=== PATIENT | female | born 1945 | race Hispanic/Latino ===

== ENCOUNTER 2021-07-13 20:04 | Inpatient (IN) | payer MEDICARE ==
--- NOTE | 2021-07-13 23:24 | Emergency Department Report ---
ED Shortness of Breath HPI - General Chief Complaint: Dyspnea/Respdistress Stated Complaint: GIANCARLO Time Seen by Provider: 07/13/21 23:19 Source: patient Mode of arrival: Wheelchair Limitations: No Limitations - History of Present Illness Initial Comments: Patient is a 75-year-old female that presents emergency room with complaints of cough and shortness of breath. Patient states short breath better with rest and worse with exertion. Patient states that her symptoms are worsening. Patient dates her symptoms been going on for 3 days. Patient denies chest pain. Patient states she has a dry cough. Patient denies fever and chills. Patient denies abdominal pain. Patient denies nausea vomiting. Patient also complains of lower extremity swelling for 3 days. Patient denies recent travel. Patient denies recent international travel. Patient denies exposure to the novel coronavirus. Patient denies sick contacts. Patient denies fever and chills. . Patient denies diarrhea. Patient denies coming in contact with anybody with symptoms of the novel coronavirus. Patient denies past medical history. Patient brought in by EMS. Patient placed on oxygen because her oxygen level was 86%. Patient is currently on 4 L of oxygen. MD Complaint: shortness of breath, cough -: Sudden, days(s) Severity: severe Consistency: constant Improves With: rest Worsens With: exertion Associated Symptoms: cough Treatments Prior to Arrival: oxygen - Related Data Home Oxygen Therapy: No Allergies Allergy/AdvReac Type Severity Reaction Status Date / Time No Known Allergies Allergy Verified 07/13/21 22:04 ED Review of Systems ROS: Stated complaint: GIANCARLO Other details as noted in HPI Constitutional: denies: chills, fever Eyes: denies: eye pain, eye discharge, vision change ENT: denies: ear pain, throat pain Respiratory: see HPI, cough, shortness of breath, SOB with exertion, SOB at rest. denies: wheezing Cardiovascular: dyspnea on exertion, edema. denies: chest pain, palpitations Endocrine: no symptoms reported Gastrointestinal: denies: abdominal pain, nausea, diarrhea Genitourinary: denies: urgency, dysuria, discharge Musculoskeletal: denies: back pain, joint swelling, arthralgia Skin: denies: rash, lesions Neurological: denies: headache, weakness, paresthesias Psychiatric: denies: anxiety, depression Hematological/Lymphatic: denies: easy bleeding, easy bruising ED Past Medical Hx - Past Medical History Previous Medical History?: Yes Additional medical history: spinal stenosis - Surgical History Past Surgical History?: No - Family History Family history: no significant - Social History Smoking Status: Never Smoker Substance Use Type: None ED Physical Exam - General Limitations: No Limitations General appearance: alert, in distress - Head Head exam: Present: atraumatic, normocephalic - Eye Eye exam: Present: normal appearance - ENT ENT exam: Present: mucous membranes moist - Neck Neck exam: Present: normal inspection - Respiratory Respiratory exam: Present: respiratory distress, rales, rhonchi, decreased breath sounds - Cardiovascular Cardiovascular Exam: Present: regular rate, normal rhythm. Absent: systolic murmur, diastolic murmur, rubs, gallop - GI/Abdominal GI/Abdominal exam: Present: soft, normal bowel sounds - Extremities Exam Extremities exam: Present: normal inspection - Back Exam Back exam: Present: normal inspection - Neurological Exam Neurological exam: Present: alert, oriented X3 - Psychiatric Psychiatric exam: Present: normal affect, normal mood - Skin Skin exam: Present: warm, dry, intact, normal color. Absent: rash ED Course Vital Signs 07/13/21 07/13/21 07/14/21 22:05 23:47 00:55 Temperature 97.8 F Pulse Rate 112 H 102 H Respiratory 22 22 24 Rate Blood Pressure Blood Pressure 145/69 164/72 [Left] O2 Sat by Pulse 97 100 Oximetry 07/14/21 07/14/21 07/14/21 01:30 01:33 01:45 Temperature Pulse Rate 104 H 107 H Respiratory 28 H 28 H 24 Rate Blood Pressure Blood Pressure [Left] O2 Sat by Pulse 100 100 Oximetry 07/14/21 07/14/21 07/14/21 02:01 02:15 02:20 Temperature 98.1 F Pulse Rate 108 H 109 H 112 H Respiratory 26 H 25 H 22 Rate Blood Pressure 147/53 147/53 Blood Pressure [Left] O2 Sat by Pulse 95 Oximetry 07/14/21 07/14/21 07/14/21 02:31 02:35 02:45 Temperature Pulse Rate 107 H 104 H 105 H Respiratory 26 H 24 25 H Rate Blood Pressure 124/68 120/33 120/33 Blood Pressure [Left] O2 Sat by Pulse 95 Oximetry 07/14/21 07/14/21 07/14/21 03:01 03:05 03:15 Temperature Pulse Rate 104 H 108 H 93 H Respiratory 21 24 19 Rate Blood Pressure 115/43 115/43 144/68 Blood Pressure [Left] O2 Sat by Pulse 100 100 Oximetry 07/14/21 07/14/21 07/14/21 03:31 03:35 03:45 Temperature Pulse Rate 87 143 H 86 Respiratory 15 18 15 Rate Blood Pressure 143/57 143/57 126/65 Blood Pressure [Left] O2 Sat by Pulse 100 98 100 Oximetry 07/14/21 07/14/21 03:55 04:01 Temperature 98.2 F Pulse Rate 85 95 H Respiratory 15 15 Rate Blood Pressure 133/56 133/56 Blood Pressure [Left] O2 Sat by Pulse 100 Oximetry - Reevaluation(s) Reevaluation #1: Patient is now complaining of chest pain. Patient given morphine. Patient has pulmonary edema on her chest x-ray patient was given Lasix. Patient also complained of anxiety and the patient was given Ativan. 07/14/21 00:25 Reevaluation #2: Patient will be given heparin drip for NSTEMI. Patient will also be given packed red blood cells. I discussed all results with patient. I discussed plan of care with patient. Patient agrees with plan of care and admission. Patient to be admitted to the hospitalist service. 07/14/21 00:38 - Consultations Consultation #1: Hospitalist consulted for admission. Hospitalist to admit patient. 07/14/21 00:38 ED Medical Decision Making - Lab Data Result diagrams: 07/13/21 23:26 07/13/21 23:26 - EKG Data -: EKG Interpreted by Me EKG shows normal: sinus rhythm, axis, intervals, QRS complexes, ST-T waves Rate: tachycardia - Radiology Data Radiology results: report reviewed, image reviewed interpreted by me: Chest x-ray: No pneumonia, no pneumothorax, no foreign body, no osseous findings, vascular congestion noted. CHEST 1 VIEW 07/13/2021 10:49 PM INDICATION / CLINICAL INFORMATION: Dyspnea. COMPARISON: None available. FINDINGS: SUPPORT DEVICES: None. HEART / MEDIASTINUM: No significant abnormality. LUNGS / PLEURA: Moderate interstitial edema. Small left pleural effusion. No pneumothorax. ADDITIONAL FINDINGS: No significant additional findings. IMPRESSION: 1. Moderate CHF - Medical Decision Making Patient is a 75-year-old female presents emergency room with complaints of shortness of breath. Patient complains of lung congestion. Patient found to have toxic placed on oxygen the entire time in the ER. Patient required the oxygen. Patient found to have rales on her lung exam. Patient had chest x-ray which shows pulmonary edema and CHF changes. Patient had EKG which shows no acute findings. I personally reviewed the EKG and chest x-ray. Patient given Lasix, morphine. Patient also complained of being anxious and patient was given Ativan. Patient had labs done which showed anemia, elevated troponin, normal renal function, elevated BNP. Patient placed on a heparin drip for the elevated troponin for an NSTEMI. Patient typed and screened and given 1 unit of blood in the ER. Patient admitted to the hospital service for further evaluation treatment. Patient placed in the ICU. Critical care time documented due to the multiple reassessments, prolonged time at the bedside, interpretation of diagnostics and labs. - Differential Diagnosis New onset CHF, pneumonia, bronchitis, S OB, hypoxia Critical Care Time: Yes Critical care time in (mins) excluding proc time.: 35 Critical care attestation.: If time is entered above; I have spent that time in minutes in the direct care of this critically ill patient, excluding procedure time. Critical Care Time: 35 minutes ED Disposition Clinical Impression: Shortness of breath, New onset of congestive heart failure, Elevated troponin I level, NSTEMI (non-ST elevated myocardial infarction) CHF exacerbation Qualifiers: Heart failure type: unspecified Qualified Code(s): I50.9 - Heart failure, unspecified Respiratory failure Qualifiers: Chronicity: acute Respiratory failure complication: hypoxia Qualified Code(s): J96.01 - Acute respiratory failure with hypoxia Anemia Qualifiers: Anemia type: unspecified type Qualified Code(s): D64.9 - Anemia, unspecified Pulmonary edema Qualifiers: Chronicity: acute Qualified Code(s): J81.0 - Acute pulmonary edema Disposition: 09 ADMITTED INPATIENT Is pt being admited?: Yes Does the pt Need Aspirin: No Condition: Critical Time of Disposition: 00:45
[2021-07-13 23:47] LABS: Hematocrit 20.7 % (30.3-42.9); Hemoglobin 6.2 gm/dl (10.1-14.3); Mean Corpuscular HGB Conc 30 % (30-34); Platelet Count 310 K/mm3 (140-440); Red Blood Count 3.02 M/mm3 (3.65-5.03)
[2021-07-14 00:05] LABS: Mean Corpuscular Volume 69 fl (79-97); Red Cell Distribution Width 22.9 % (13.2-15.2)
[2021-07-14 00:11] LABS: Alanine Aminotransferase 20 units/L (7-56); Albumin 3.9 g/dL (3.9-5); Blood Urea Nitrogen 19 mg/dL (7-17); Calcium 8.9 mg/dL (8.4-10.2); Creatine Kinase MB 9.5 ng/mL (0.0-4.0); Hemolysis Index 0
[2021-07-14] MEDS ORDERED: ONDANSETRON 4 MG/2 ML INJ IV ONE (00:20)
[2021-07-14] MEDS ORDERED: MORPHINE 2 MG/1 ML INJ IV ONE (00:20)
[2021-07-14] MEDS ORDERED: LORazepam 2 MG/ML VIAL IV ONE ×2 (00:20→02:51)
[2021-07-14] MEDS ORDERED: ONDANSETRON 4 MG/2 ML INJ ONE (00:22)
[2021-07-14] MEDS ORDERED: MORPHINE 2 MG/1 ML INJ ONE (00:22)
--- NOTE | 2021-07-14 00:22 | XRay Report ---
CHEST 1 VIEW 07/13/2021 10:49 PM INDICATION / CLINICAL INFORMATION: Dyspnea. COMPARISON: None available. FINDINGS: SUPPORT DEVICES: None. HEART / MEDIASTINUM: No significant abnormality. LUNGS / PLEURA: Moderate interstitial edema. Small left pleural effusion. No pneumothorax. ADDITIONAL FINDINGS: No significant additional findings. IMPRESSION: 1. Moderate CHF Signer Name: Sander Clay MD Signed: 07/14/2021 12:18 AM Workstation Name: [id number]
[2021-07-14] MEDS ORDERED: FUROSEMIDE 100 MG/10 ML INJ IV ONE (00:25)
[2021-07-14 00:27] LABS: Band Neutrophils # (Manual) 0.1 K/mm3; Total Cells Counted 100
[2021-07-14 00:28] LABS: Hypochromasia 3+; Ovalocytes Few; Target Cells Few; Tear Drop Cells Few
[2021-07-14 00:30] LABS: BUN/Creatinine Ratio 27
[2021-07-14 00:35] LABS: Platelet Estimate Consistent w Auto
[2021-07-14] MEDS ORDERED: HEPARIN 10,000 UNITS/10 ML VIAL IV ONE (00:36)
[2021-07-14 00:37] LABS: Mean Platelet Volume 7.5 fl (6-12)
[2021-07-14] MEDS ORDERED: SODIUM CHLORIDE 0.9% 500 ML 500 ML IV ONE (00:37)
[2021-07-14 00:38] LABS: Basophils % (Auto) 0.1 % (0.0-1.8); Eosinophils % (Auto) 0.1 % (0.0-4.3); Lymphocytes # (Auto) 0.5 K/mm3 (1.2-5.4); Lymphocytes % (Auto) 3.9 % (13.4-35.0); Monocytes # (Auto) 0.6 K/mm3 (0.0-0.8); Monocytes % (Auto) 4.8 % (0.0-7.3)
[2021-07-14] MEDS ORDERED: HEPARIN/ 0.45% NACL DRIP 25,000 UNIT/500 ML BAG IV SCH (01:00)
[2021-07-14] MEDS ORDERED: ONDANSETRON 4 MG/2 ML INJ IV PRN (01:22)
[2021-07-14] MEDS ORDERED: MORPHINE 4 MG/1 ML INJ IV PRN (01:22)
[2021-07-14] MEDS ORDERED: MAGNESIUM HYDROXIDE (MOM) ORAL LIQD UDC PO PRN (01:22)
--- NOTE | 2021-07-14 01:34 | History and Physical Report ---
History of Present Illness Date of examination: 07/14/21 Date of admission: 07/14/2021 Chief complaint: Shortness of breath Lower extremity swelling History of present illness: 75-year-old female with no significant past medical history except spinal stenosis presents to the emergency room today complaining of shortness of breath, cough and progressive swelling of her lower extremities over the past few days. Shortness of breath is said to be worse on exertion. She denies any chest pain but she has had some mild cough which is nonproductive. She denies any fever or chills, no nausea vomiting, no headache or dizziness. Patient denies any sick contacts and no recent travel. Denies any contact with anyone with COVID-19. She admits that she has not been fully vaccinated against COVID-19. Upon arrival in the emergency room oxygen saturation was about 86% on room air patient was placed on oxygen by nasal cannula with improvement in her oxygen saturation. Work-up in the emergency room today, chest x-ray reveals moderate CHF. Labs reveals elevated troponin of 0.054, BNP 4125. Patient has a mild leukocytosis of 12 and a hemoglobin of 6.2. Past History Past Medical History: other (Spinal stenosis) Past Surgical History: No surgical history Social history: no significant social history Family history: no significant family history Medications and Allergies Allergies Allergy/AdvReac Type Severity Reaction Status Date / Time No Known Allergies Allergy Verified 07/13/21 22:04 Active Meds: Active Medications Heparin Sodium/Sodium Chloride (Heparin/ 0.45% Nacl-25,000 Unit/500 Ml) 25,000 unit in 500 mls @ 20 mls/hr IV TITRATE H[facility]ILTON; Protocol Review of Systems Constitutional: no fever, no chills Ears, nose, mouth and throat: no nasal congestion, no sore throat Cardiovascular: edema (Lower extremity), no chest pain, no palpitations Respiratory: shortness of breath, no cough, no wheezing Gastrointestinal: no abdominal pain, no nausea, no vomiting, no diarrhea Genitourinary Female: no flank pain, no dysuria, no hematuria Musculoskeletal: no neck pain, no low back pain Integumentary: no rash, no pruritis Psychiatric: no anxiety, no depression Endocrine: no polyphagia, no polydipsia, no polyuria, no nocturia Exam - Constitutional Vitals: Temp Pulse Resp BP Pulse Ox 97.8 F 102 H 22 164/72 100 07/13/21 22:05 07/13/21 23:47 07/13/21 23:47 07/13/21 23:47 07/13/21 23:47 General appearance: Present: no acute distress, mild distress, well-nourished - EENT Eyes: Present: PERRL, EOM intact. Absent: scleral icterus ENT: hearing intact, clear oral mucosa, dentition normal - Neck Neck: Present: supple, normal ROM - Respiratory Respiratory effort: labored Respiratory: bilateral: rales - Cardiovascular Rhythm: regular Heart Sounds: Present: S1 & S2. Absent: gallop, systolic murmur, diastolic murmur, rub, click - Extremities Extremities: no ischemia, pulses intact, pulses symmetrical, normal temperature, normal color, Full ROM Extremity abnormal: edema (2+ bilateral lower extremity pitting edema) Peripheral Pulses: within normal limits - Abdominal General gastrointestinal: Present: soft, non-tender, non-distended, normal bowel sounds. Absent: mass - Integumentary Integumentary: Present: clear, warm, dry - Musculoskeletal Musculoskeletal: strength equal bilaterally - Psychiatric Psychiatric: appropriate mood/affect, intact judgment & insight, memory intact, cooperative - Neurologic Neurologic: CNII-XII intact, no focal deficits, moves all extremities HEART Score - HEART Score Troponin: Troponin T 0.054 ng/mL (0.00-0.029) H 07/13/21 23:26 Results - Labs CBC & Chem 7: 07/13/21 23:26 07/13/21 23:26 Labs: Abnormal lab results 07/13/21 07/13/21 07/14/21 Range/Units 23:26 23:26 00:00 WBC 12.2 H (4.5-11.0) K/mm3 RBC 3.02 L (3.65-5.03) M/mm3 Hgb 6.2 L (10.1-14.3) gm/dl Hct 20.7 L (30.3-42.9) % MCV 69 L (79-97) fl MCH 20 L (28-32) pg RDW 22.9 H (13.2-15.2) % Lymph % (Auto) 3.9 L (13.4-35.0) % Lymph # (Auto) 0.5 L (1.2-5.4) K/mm3 Seg Neutrophils % 91.1 H (40.0-70.0) % Seg Neuts % (Manual) 89.0 H (40.0-70.0) % Lymphocytes % (Manual) 5.0 L (13.4-35.0) % Seg Neutrophils # 11.1 H (1.8-7.7) K/mm3 Seg Neutrophils # Man 10.9 H (1.8-7.7) K/mm3 Lymphocytes # (Manual) 0.6 L (1.2-5.4) K/mm3 Sodium 135 L (137-145) mmol/L Chloride 96.9 L (98-107) mmol/L BUN 19 H (7-17) mg/dL Glucose 151 H (65-100) mg/dL Total Creatine Kinase 158 H (30-135) units/L CK-MB (CK-2) 9.5 H (0.0-4.0) ng/mL CK-MB (CK-2) Rel Index 6.0 H (0-4) Troponin T 0.054 H (0.00-0.029) ng/mL NT-Pro-B Natriuret Pep 4125 H (0-900) pg/mL Crossmatch 07/14/21 Range/Units 00:40 WBC (4.5-11.0) K/mm3 RBC (3.65-5.03) M/mm3 Hgb (10.1-14.3) gm/dl Hct (30.3-42.9) % MCV (79-97) fl MCH (28-32) pg RDW (13.2-15.2) % Lymph % (Auto) (13.4-35.0) % Lymph # (Auto) (1.2-5.4) K/mm3 Seg Neutrophils % (40.0-70.0) % Seg Neuts % (Manual) (40.0-70.0) % Lymphocytes % (Manual) (13.4-35.0) % Seg Neutrophils # (1.8-7.7) K/mm3 Seg Neutrophils # Man (1.8-7.7) K/mm3 Lymphocytes # (Manual) (1.2-5.4) K/mm3 Sodium (137-145) mmol/L Chloride (98-107) mmol/L BUN (7-17) mg/dL Glucose (65-100) mg/dL Total Creatine Kinase (30-135) units/L CK-MB (CK-2) (0.0-4.0) ng/mL CK-MB (CK-2) Rel Index (0-4) Troponin T (0.00-0.029) ng/mL NT-Pro-B Natriuret Pep (0-900) pg/mL Crossmatch See Detail Assessment and Plan - Patient Problems (1) CHF exacerbation Current Visit: No Status: Acute Qualifiers: Heart failure type: unspecified Qualified Code(s): I50.9 - Heart failure, unspecified Plan to address problem: Patient placed on diuretics. Will monitor inputs and outputs and also monitor daily weight. Patient will be scheduled for echocardiogram. Consult placed to cardiology for evaluation. (2) NSTEMI (non-ST elevated myocardial infarction) Current Visit: No Status: Acute Plan to address problem: Possibly secondary to demand ischemia. Patient has denied any chest pain. We will monitor EKG and troponin levels. Will await further recommendations from cardiology. (3) Anemia Current Visit: No Status: Acute Qualifiers: Anemia type: unspecified type Qualified Code(s): D64.9 - Anemia, unspecifi ed Plan to address problem: Patient will be transfused with packed red blood cells. We will monitor CBC. (4) DVT prophylaxis Current Visit: No Status: Acute Plan to address problem: Patient currently on anticoagulation with heparin (5) Full code status Current Visit: No Status: Acute Plan to address problem: Patient is full code.
[2021-07-14] MEDS ORDERED: FUROSEMIDE 20 MG/2 ML INJ IV ONE (05:05)
[2021-07-14] MEDS: FUROSEMIDE 40 MG/4 ML INJ IV SCH ×2 (05:07→19:50)
[2021-07-14] MEDS: MORPHINE 2 MG/1 ML INJ IV PRN ×2 (05:36→20:57)
[2021-07-14] MEDS ORDERED: HEPARIN 5,000 UNIT/1 ML VIAL SUB-Q SCH (06:00)
[2021-07-14] MEDS ORDERED: SODIUM CHLORIDE 0.9% 500 ML 500 ML IV SCH (08:00)
--- NOTE | 2021-07-14 12:19 | Consultation ---
History of Present Illness Consult date: 07/14/21 Consult reason: congestive heart failure History of present illness: The patient is a 75-year-old woman who presents to the hospital with several days of shortness of breath. On presentation, ECG was sinus rhythm with no acute changes. Chest x-ray showed bilateral interstitial infiltrates, suggestive of acute pulmonary edema. She looks and feels more comfortable following initial cardiac management. Patient is a poor historian, unable to articulate any details of her prior cardiac history and cardiac work-up. Echocardiogram on this presentation shows a mild to moderate left ventricular dysfunction with ejection fraction 40 to 45%. There are regional wall motion abnormalities with hypokinesis of the basal inferolateral wall and apex, suggestive of possible prior infarct, although the regional wall motion pattern cannot exclude a nonischemic cardiomyopathy such as Takotsubo syndrome. Other findings on this presentation include severe anemia with a hematocrit of 20. Troponin level was measured and was borderline at 0.05. Past History Past Medical History: other (Spinal stenosis) Past Surgical History: No surgical history Social history: no significant social history Family history: no significant family history Medications and Allergies Allergies Allergy/AdvReac Type Severity Reaction Status Date / Time No Known Allergies Allergy Verified 07/13/21 22:04 Active Meds: Active Medications Acetaminophen (Acetaminophen 325 Mg Tab) 650 mg PO Q4H PRN PRN Reason: Pain MILD(1-3)/Fever >100.5/GILMORE Furosemide (Furosemide 40 Mg/4 Ml Inj) 40 mg IV BID@0600,1800 H[facility]ILTON Last Admin: 07/14/21 05:07 Dose: 40 mg Documented by: Heparin Sodium/Sodium Chloride (Heparin/ 0.45% Nacl-25,000 Unit/500 Ml) 25,000 unit in 500 mls @ 20 mls/hr IV TITRATE HAMILTON; Protocol Last Admin: 07/14/21 01:47 Dose: 1,000 units/hr, 20 mls/hr Documented by: Magnesium Hydroxide (Magnesium Hydroxide (Mom) Oral Liqd Udc) 30 ml PO Q4H PRN PRN Reason: Constipation Morphine Sulfate (Morphine 2 Mg/1 Ml Inj) 2 mg IV Q4H PRN PRN Reason: Pain, Moderate (4-6) Last Admin: 07/14/21 05:36 Dose: 2 mg Documented by: Morphine Sulfate (Morphine 4 Mg/1 Ml Inj) 4 mg IV Q4H PRN PRN Reason: Pain , Severe (7-10) Ondansetron HCl (Ondansetron 4 Mg/2 Ml Inj) 4 mg IV Q8H PRN PRN Reason: Nausea And Vomiting Sodium Chloride (Sodium Chloride 0.9% 10 Ml Flush Syringe) 10 ml IV BID H[facility]ILTON Sodium Chloride (Sodium Chloride 0.9% 10 Ml Flush Syringe) 10 ml IV PRN PRN PRN Reason: LINE FLUSH Review of Systems Cardiovascular: shortness of breath, no chest pain, no orthopnea, no palpitations, no rapid/irregular heart beat, no edema, no syncope, no lightheadedness Physical Examination Vital Signs Temp Pulse Resp BP Pulse Ox 97.8 F 112 H 22 145/69 97 07/13/21 22:05 07/13/21 22:05 07/13/21 22:05 07/13/21 22:05 07/13/21 22:05 General appearance: no acute distress HEENT: Positive: PERRL Neck: Positive: neck supple Cardiac: Positive: Reg Rate and Rhythm Lungs: Positive: Decreased Breath Sounds Neuro: Positive: Grossly Intact Abdomen: Positive: Soft Female genitourinary: deferred Skin: Positive: Clear Extremities: Absent: edema Results 07/13/21 23:26 07/13/21 23:26 Cardiac Enzymes 07/13/21 Range/Units 23:26 AST 24 (5-40) units/L CK-MB (CK-2) 9.5 H (0.0-4.0) ng/mL Coagulation 07/14/21 Range/Units 00:40 PT 14.3 (12.2-14.9) Sec. INR 1.00 (0.87-1.13) APTT 25.0 (24.2-36.6) Sec. CBC 07/13/21 Range/Units 23:26 WBC 12.2 H (4.5-11.0) K/mm3 RBC 3.02 L (3.65-5.03) M/mm3 Hgb 6.2 L (10.1-14.3) gm/dl Hct 20.7 L (30.3-42.9) % Plt Count 310 (140-440) K/mm3 Lymph # (Auto) 0.5 L (1.2-5.4) K/mm3 Tripp # (Auto) 0.6 (0.0-0.8) K/mm3 Eos # (Auto) 0.0 (0.0-0.4) K/mm3 Baso # (Auto) 0.0 (0.0-0.1) K/mm3 Comprehensive Metabolic Panel 07/13/21 Range/Units 23:26 Sodium 135 L (137-145) mmol/L Potassium 3.9 (3.6-5.0) mmol/L Chloride 96.9 L (98-107) mmol/L Carbon Dioxide 22 (22-30) mmol/L BUN 19 H (7-17) mg/dL Creatinine 0.7 (0.6-1.2) mg/dL Glucose 151 H (65-100) mg/dL Calcium 8.9 (8.4-10.2) mg/dL AST 24 (5-40) units/L ALT 20 (7-56) units/L Alkaline Phosphatase 117 (35-129) units/L Total Protein 6.9 (6.3-8.2) g/dL Albumin 3.9 (3.9-5) g/dL EKG interpretations - Telemetry EKG Rhythm: Sinus Rhythm Assessment and Plan - Patient Problems (1) Shortness of breath Current Visit: Yes Status: Acute Plan to address problem: Patient presents with shortness of breath, evidence of interstitial edema on chest x-ray. Echocardiogram shows a mild to moderate severity cardiomyopathy with regional motion abnormalities that may suggest underlying coronary artery disease. Continue diuretic management, we will add guideline directed medical therapy, and attempt to obtain her prior medical records for any previous cardiac work-u p. Ultimately, she may need a ischemic evaluation depending on clinical course. Patient has severe anemia, which needs to be worked up and corrected to optimize cardiac status.
[2021-07-14] MEDS: CLOPIDOGREL 75 MG TAB PO SCH (14:08)
[2021-07-14] MEDS: POTASSIUM CHLORIDE ER 20 MEQ TAB PO SCH (14:08)
[2021-07-14] MEDS: LISINOPRIL 5 MG TAB PO SCH (14:09)
[2021-07-14] MEDS: METOPROLOL TARTRATE 25 MG TAB PO SCH ×2 (14:09→22:00)
[2021-07-14 14:43] LABS: Chol/HDL Ratio 2.79 %
[2021-07-15 04:57] LABS: Bacteria,Urine 2+ /HPF (Negative); Bilirubin,Urine NEG (Negative); Blood,Urine NEG (Negative); Color,Urine Yellow (Yellow); Mucus,Urine FEW /HPF; Protein,Urine <15 mg/dL mg/dL (Negative); Urobilinogen,Urine < 2.0 mg/dL (<2.0)
[2021-07-15] MEDS: FUROSEMIDE 40 MG/4 ML INJ IV SCH ×2 (06:06→19:41)
[2021-07-15] MEDS: METOPROLOL TARTRATE 25 MG TAB PO SCH ×3 (06:08→22:54)
[2021-07-15] MEDS: NITROGLYCERIN 0.4 MG PATCH 24HR TD SCH (06:14)
[2021-07-15 08:04] LABS: Hematocrit 21.4 % (30.3-42.9); Hemoglobin 6.5 gm/dl (10.1-14.3); Mean Corpuscular HGB Conc 31 % (30-34); Mean Corpuscular Volume 72 fl (79-97); Platelet Count 235 K/mm3 (140-440); Red Blood Count 2.98 M/mm3 (3.65-5.03)
[2021-07-15 08:33] LABS: BUN/Creatinine Ratio 33; Blood Urea Nitrogen 26 mg/dL (7-17); Calcium 8.6 mg/dL (8.4-10.2); Hemolysis Index 0
[2021-07-15 08:43] LABS: Red Cell Distribution Width 27.2 % (13.2-15.2)
[2021-07-15] MEDS ORDERED: SODIUM CHLORIDE 0.9% 500 ML 500 ML IV NR (09:23)
--- NOTE | 2021-07-15 09:26 | Event Note ---
Date: 07/14/21 Patient seen and examined Patient currently on 5 L nasal cannula O2 Patient appears anxious with bilateral diffuse crackles and rhonchi The patient is a 75-year-old woman who presents to the hospital with several days of shortness of breath. On presentation, ECG was sinus rhythm with no acute changes. Chest x-ray showed bilateral interstitial infiltrates, suggestive of acute pulmonary edema. Continue IV Lasix, cardiology consulted Waiting on pending 2D echocardiogram Patient is unvaccinated for Covid, will also rule out for Covid pneumonia Continue current management and plan -It took me about 28 minutes to reevaluate and reasses this patient, discussed with RN/CM, review medical documents, lab results, imaging, medication list and placing order.
[2021-07-15] MEDS: CLOPIDOGREL 75 MG TAB PO SCH (09:51)
[2021-07-15] MEDS: LISINOPRIL 5 MG TAB PO SCH (09:51)
[2021-07-15] MEDS: POTASSIUM CHLORIDE ER 20 MEQ TAB PO SCH (09:51)
--- NOTE | 2021-07-15 13:10 | Progress Note ---
Assessment and Plan - Patient Problems (1) Shortness of breath Current Visit: Yes Status: Acute Plan to address problem: Patient presents with shortness of breath, evidence of interstitial edema on chest x-ray. Echocardiogram shows a mild to moderate severity cardiomyopathy with regional motion abnormalities that may suggest underlying coronary artery disease. In addition, she has has severe anemia, with a hematocrit that is still 21. Will defer work-up or management to internal medicine and hematology. Eventually, after anemia is corrected we will consider a predischarge noninvasive ischemia evaluation with Lexiscan thallium. Subjective Date of service: 07/15/21 Interval history: Patient looks and feels better, no chest pain, no shortness of breath. Objective Vital Signs Temp Pulse Resp BP Pulse Ox 07/15/21 08:26 90 07/15/21 06:14 92 H 128/52 07/15/21 06:08 92 H 128/52 07/15/21 05:32 98.7 F 92 H 18 128/52 97 07/15/21 05:00 96 07/14/21 23:00 96 07/14/21 22:00 87 132/58 07/14/21 21:33 98.9 F 94 H 18 107/53 98 07/14/21 16:32 98.9 F 90 17 118/42 98 07/14/21 16:30 96 07/14/21 16:01 98.9 F 87 18 132/58 100 07/14/21 14:09 95 H - Physical Examination General: No Apparent Distress HEENT: Positive: PERRL Neck: Positive: neck supple Cardiac: Positive: Reg Rate and Rhythm Lungs: Positive: clear to auscultation Neuro: Positive: Grossly Intact Abdomen: Positive: Soft Skin: Positive: Clear Extremities: Absent: edema - Labs and Meds Lipids 07/14/21 Range/Units 12:53 Triglycerides 93 (2-149) mg/dL Cholesterol 120 (50-199) mg/dL HDL Cholesterol 43 (40-59) mg/dL Cholesterol/HDL Ratio 2.79 % CBC 07/15/21 Range/Units 07:15 WBC 8.0 (4.5-11.0) K/mm3 RBC 2.98 L (3.65-5.03) M/mm3 Hgb 6.5 L (10.1-14.3) gm/dl Hct 21.4 L (30.3-42.9) % Plt Count 235 (140-440) K/mm3 Comprehensive Metabolic Panel 07/15/21 Range/Units 07:15 Sodium 143 D (137-145) mmol/L Potassium 3.4 L (3.6-5.0) mmol/L Chloride 103.4 (98-107) mmol/L Carbon Dioxide 25 (22-30) mmol/L BUN 26 H (7-17) mg/dL Creatinine 0.8 (0.6-1.2) mg/dL Glucose 99 (65-100) mg/dL Calcium 8.6 (8.4-10.2) mg/dL
[2021-07-15] MEDS: MORPHINE 2 MG/1 ML INJ IV PRN ×2 (15:25→22:55)
[2021-07-15 17:52] LABS: Basophils % (Auto) 0.3 % (0.0-1.8); Eosinophils # (Auto) 0.2 K/mm3 (0.0-0.4); Eosinophils % (Auto) 1.9 % (0.0-4.3); Lymphocytes # (Auto) 1.1 K/mm3 (1.2-5.4); Lymphocytes % (Auto) 13.3 % (13.4-35.0); Monocytes # (Auto) 0.6 K/mm3 (0.0-0.8); Monocytes % (Auto) 7.6 % (0.0-7.3)
[2021-07-16] MEDS ORDERED: SODIUM CHLORIDE 0.9% 500 ML IVPB IV ONE (01:38)
[2021-07-16] MEDS: METOPROLOL TARTRATE 25 MG TAB PO SCH ×3 (06:55→22:39)
[2021-07-16] MEDS: FUROSEMIDE 40 MG/4 ML INJ IV SCH ×2 (06:55→17:22)
[2021-07-16] MEDS: NITROGLYCERIN 0.4 MG PATCH 24HR TD SCH (07:00)
[2021-07-16] MEDS ORDERED: diphenhydrAMINE 50 MG/ML VIAL IV ONE (07:43)
--- NOTE | 2021-07-16 08:19 | Progress Note ---
Assessment and Plan --Acute on chronic systolic CHF exacerbation Patient placed on diuretics. Will monitor inputs and outputs and also monitor daily weight. 2D echo showed EF 40 to 45% Consult placed to cardiology for evaluation. --Acute hypoxic respiratory failure, likely due to CHF exacerbation We will also rule out for COVID-19, continue IV Lasix for now --Covid PUI, patient is unvaccinated for Covid, ordered for Covid PCR -- NSTEMI (non-ST elevated myocardial infarction) type II Possibly secondary to demand ischemia. Patient has denied any chest pain. We will monitor EKG and troponin levels. Will await further recommendations from cardiology. -- Anemia likely acute on chronic Patient will be transfused with packed red blood cells. We will monitor CBC. Ordered stool for occult blood -- DVT prophylaxis, SCD for severe anemia --Full CODE STATUS Daily clinical course: 07/14/21: Patient currently on 5 L nasal cannula O2. Patient appears anxious with bilateral diffuse crackles and rhonchi The patient is a 75-year-old woman who presents to the hospital with several days of shortness of breath. On presentation, ECG was sinus rhythm with no acute changes. Chest x-ray showed bilateral interstitial infiltrates, suggestive of acute pulmonary edema. Continue IV Lasix, cardiology consulted Waiting on pending 2D echocardiogram status post 1 unit of packed RBC transfusion. Patient is unvaccinated for Covid, will also rule out for Covid pneumonia Continue current management and plan 07/15/21: Patient hemoglobin still remains low, transfuse another unit of packed RBC, order stool for occult blood, hold heparin. pending Covid test. 2D echo showed EF 40 to 45%. Wean off O2 as tolerated, remains on 4 to 5 L nasal cannula O2. Subjective Date of service: 07/15/21 Interval history: Patient seen and examined. Medical records and medication list reviewed. No acute event overnight noted by the RN. Patient complains of difficulty breathing even on resting and cough. Patient is tolerating diet. Denies any active bleeding Discussed plan of care at bedside with patient. Objective - Exam Narrative Exam: Limited physical exam due to COVID-19 pandemic to minimize transmission of the disease and to preserve PPE. Vital reviewed and stable. GENERAL: well-developed obese elderly man white female lying on bed appeared to be in no discomfort. HEENT: Normocephalic. Atraumatic. NECK: Supple. CHEST/LUNGS: breathing with supplemental O2 HEART/CARDIOVASCULAR: Heart rate stable on telemetry ABDOMEN: Visibly not distended SKIN: There is no rash NEURO: No focal motor deficit. Follows command. MUSCULOSKELETAL: No joint effusion EXTRIMITY: No swelling, no cyanosis or clubbing. PSYCH: Cooperative. - Constitutional Vitals: Vital Signs - 12hr 07/15/21 07/15/21 07/16/21 21:55 23:11 03:15 Temperature 99.2 F 98.6 F Pulse Rate 94 H 82 Respiratory 16 20 Rate Blood Pressure 113/33 100/60 O2 Sat by Pulse 97 95 99 Oximetry 07/16/21 07/16/21 07/16/21 03:30 03:47 04:00 Temperature 98.4 F 98.4 F 98.6 F Pulse Rate 83 83 82 Respiratory 18 20 18 Rate Blood Pressure 126/56 126/51 126/56 O2 Sat by Pulse 98 98 98 Oximetry 07/16/21 07/16/21 07/16/21 04:30 05:00 05:30 Temperature 98.4 F 98.2 F 97.8 F Pulse Rate 82 84 83 Respiratory 18 18 18 Rate Blood Pressure 120/56 122/58 130/60 O2 Sat by Pulse 98 98 98 Oximetry - Labs CBC & Chem 7: 07/16/21 10:50 07/15/21 07:15 Labs: Abnormal lab results 07/14/21 07/15/21 07/15/21 Range/Units 00:40 07:15 07:15 RBC 2.98 L (3.65-5.03) M/mm3 Hgb 6.5 L (10.1-14.3) gm/dl Hct 21.4 L (30.3-42.9) % MCV 72 L (79-97) fl MCH 22 L (28-32) pg RDW 27.2 H (13.2-15.2) % Lymph % (Auto) 13.3 L (13.4-35.0) % [place] % (Auto) 7.6 H (0.0-7.3) % Lymph # (Auto) 1.1 L (1.2-5.4) K/mm3 Seg Neutrophils % 76.9 H (40.0-70.0) % Potassium 3.4 L (3.6-5.0) mmol/L BUN 26 H (7-17) mg/dL Crossmatch See Detail HEART Score - HEART Score Troponin: Troponin T 0.087 ng/mL (0.00-0.029) H D 07/14/21 12:53
[2021-07-16] MEDS: POTASSIUM CHLORIDE ER 20 MEQ TAB PO SCH (10:20)
[2021-07-16] MEDS: CLOPIDOGREL 75 MG TAB PO SCH (10:20)
[2021-07-16] MEDS: LISINOPRIL 5 MG TAB PO SCH (10:33)
[2021-07-16 11:17] LABS: Hematocrit 25.6 % (30.3-42.9); Hemoglobin 8.3 gm/dl (10.1-14.3)
[2021-07-16] MEDS: MORPHINE 2 MG/1 ML INJ IV PRN (17:22)
--- NOTE | 2021-07-16 17:55 | Progress Note ---
Assessment and Plan --Acute on chronic systolic CHF exacerbation Patient placed on diuretics. Will monitor inputs and outputs and also monitor daily weight. 2D echo showed EF 40 to 45% Consult placed to cardiology for evaluation. --Acute hypoxic respiratory failure, likely due to CHF exacerbation We will also rule out for COVID-19, continue IV Lasix for now --Covid PUI, patient is unvaccinated for Covid, ordered for Covid PCR -- NSTEMI (non-ST elevated myocardial infarction) type II Possibly secondary to demand ischemia. Patient has denied any chest pain. We will monitor EKG and troponin levels. Will await further recommendations from cardiology. -- Anemia likely acute on chronic Patient will be transfused with packed red blood cells. We will monitor CBC. Ordered stool for occult blood -- DVT prophylaxis, SCD for severe anemia --Full CODE STATUS Daily clinical course: 07/14/21: Patient currently on 5 L nasal cannula O2. Patient appears anxious with bilateral diffuse crackles and rhonchi The patient is a 75-year-old woman who presents to the hospital with several days of shortness of breath. On presentation, ECG was sinus rhythm with no acute changes. Chest x-ray showed bilateral interstitial infiltrates, suggestive of acute pulmonary edema. Continue IV Lasix, cardiology consulted Waiting on pending 2D echocardiogram status post 1 unit of packed RBC transfusion. Patient is unvaccinated for Covid, will also rule out for Covid pneumonia Continue current management and plan 07/15/21: Patient hemoglobin still remains low, transfuse another unit of packed RBC, order stool for occult blood, hold heparin. pending Covid test. 2D echo showed EF 40 to 45%. Wean off O2 as tolerated, remains on 4 to 5 L nasal cannula O2. 07/16/21: Negative for Covid, continue diuresis, H&H stable. Wait for stool for occult blood, will also consult GI. Wean off O2 as tolerated Subjective Date of service: 07/16/21 Interval history: Patient seen and examined. Medical records and medication list reviewed. No acute event overnight noted by the RN. Patient complains of difficulty breathing even on resting and cough. Patient is tolerating diet. Denies any active bleeding Discussed plan of care at bedside with patient. Objective - Exam Narrative Exam: Limited physical exam due to COVID-19 pandemic to minimize transmission of the disease and to preserve PPE. Vital reviewed and stable. GENERAL: well-developed obese elderly man white female lying on bed appeared to be in no discomfort. HEENT: Normocephalic. Atraumatic. NECK: Supple. CHEST/LUNGS: breathing with supplemental O2 HEART/CARDIOVASCULAR: Heart rate stable on telemetry ABDOMEN: Visibly not distended SKIN: There is no rash NEURO: No focal motor deficit. Follows command. MUSCULOSKELETAL: No joint effusion EXTRIMITY: No swelling, no cyanosis or clubbing. PSYCH: Cooperative. - Constitutional Vitals: Vital Signs - 12hr 07/16/21 07/16/21 07/16/21 08:26 10:33 10:40 Temperature 100.2 F H Pulse Rate 82 Respiratory 16 Rate Blood Pressure 138/44 Blood Pressure 138/44 [Left] O2 Sat by Pulse 97 96 Oximetry 07/16/21 12:44 Temperature 98.0 F Pulse Rate 89 Respiratory 18 Rate Blood Pressure 139/59 Blood Pressure [Left] O2 Sat by Pulse 95 Oximetry - Labs CBC & Chem 7: 07/16/21 10:50 07/15/21 07:15 Labs: Abnormal lab results 07/14/21 07/16/21 Range/Units 00:40 10:50 Hgb 8.3 L (10.1-14.3) gm/dl Hct 25.6 L (30.3-42.9) % Crossmatch See Detail HEART Score - HEART Score Troponin: Troponin T 0.087 ng/mL (0.00-0.029) H D 07/14/21 12:53
[2021-07-17] MEDS: MORPHINE 2 MG/1 ML INJ IV PRN (04:52)
[2021-07-17] MEDS: METOPROLOL TARTRATE 25 MG TAB PO SCH ×3 (05:54→23:11)
[2021-07-17] MEDS: FUROSEMIDE 40 MG/4 ML INJ IV SCH ×2 (05:55→19:49)
[2021-07-17] MEDS: NITROGLYCERIN 0.4 MG PATCH 24HR TD SCH (06:09)
[2021-07-17] MEDS: CLOPIDOGREL 75 MG TAB PO SCH (09:52)
[2021-07-17] MEDS: POTASSIUM CHLORIDE ER 20 MEQ TAB PO SCH (09:52)
[2021-07-17] MEDS: LISINOPRIL 5 MG TAB PO SCH (09:58)
[2021-07-17] MEDS: cefTRIAXone/NS 2 GM/100 ML 2 GM/100 ML BAG IV SCH (12:45)
[2021-07-17] MEDS ORDERED: hydrOXYzine HCL 25 MG TAB PO PRN (13:00)
--- NOTE | 2021-07-17 14:40 | Progress Note ---
Assessment and Plan --Acute on chronic systolic CHF exacerbation Patient placed on diuretics. Will monitor inputs and outputs and also monitor daily weight. 2D echo showed EF 40 to 45% Consult placed to cardiology for evaluation. --Acute hypoxic respiratory failure, likely due to CHF exacerbation Negative for COVID-19, continue IV Lasix for now --Covid PUI, patient is unvaccinated for Covid, Covid test is negative -- NSTEMI (non-ST elevated myocardial infarction) type II Possibly secondary to demand ischemia. Patient has denied any chest pain. We will monitor EKG and troponin levels. Will await further recommendations from cardiology. -- Anemia likely acute on chronic Patient will be transfused with packed red blood cells. We will monitor CBC. Ordered stool for occult blood --UTI with gram-negative rods, present on admission initiate on empiric antibiotics -- DVT prophylaxis, SCD for severe anemia --Full CODE STATUS Daily clinical course: 07/14/21: Patient currently on 5 L nasal cannula O2. Patient appears anxious with bilateral diffuse crackles and rhonchi The patient is a 75-year-old woman who presents to the hospital with several days of shortness of breath. On presentation, ECG was sinus rhythm with no acute changes. Chest x-ray showed bilateral interstitial infiltrates, suggestive of acute pulmonary edema. Continue IV Lasix, cardiology consulted Waiting on pending 2D echocardiogram status post 1 unit of packed RBC transfusion. Patient is unvaccinated for Covid, will also rule out for Covid pneumonia Continue current management and plan 07/15/21: Patient hemoglobin still remains low, transfuse another unit of packed RBC, order stool for occult blood, hold heparin. pending Covid test. 2D echo showed EF 40 to 45%. Wean off O2 as tolerated, remains on 4 to 5 L nasal cannula O2. 07/16/21: Negative for Covid, continue diuresis, H&H stable. Wait for stool for occult blood, will also consult GI. Wean off O2 as tolerated 07/17/21: Urine culture suggestive of UTI with Klebsiella, initiated on empiric antibiotics, consulted GI for anemia, patient may need possible EGD. Wait for GI recommendation. Continue IV Lasix, follow CBC BMP Subjective Date of service: 07/17/21 Interval history: Patient seen and examined. Medical records and medication list reviewed. No acute event overnight noted by the RN. Patient complains of difficulty breathing even on resting and cough. Patient is tolerating diet. Denies any active bleeding Discussed plan of care at bedside with patient. Objective - Exam Narrative Exam: Limited physical exam due to COVID-19 pandemic to minimize transmission of the disease and to preserve PPE. Vital reviewed and stable. GENERAL: well-developed obese elderly man white female lying on bed appeared to be in no discomfort. HEENT: Normocephalic. Atraumatic. NECK: Supple. CHEST/LUNGS: breathing with supplemental O2 HEART/CARDIOVASCULAR: Heart rate stable on telemetry ABDOMEN: Visibly not distended SKIN: There is no rash NEURO: No focal motor deficit. Follows command. MUSCULOSKELETAL: No joint effusion EXTRIMITY: No swelling, no cyanosis or clubbing. PSYCH: Cooperative. - Constitutional Vitals: Vital Signs - 12hr 07/17/21 07/17/21 07/17/21 04:36 05:13 09:58 Temperature 98.5 F Pulse Rate 79 74 Respiratory 20 Rate Blood Pressure 152/64 145/54 Blood Pressure [Left] O2 Sat by Pulse 95 98 Oximetry 07/17/21 07/17/21 07/17/21 10:00 12:07 12:50 Temperature 99.0 F Pulse Rate 74 77 74 Respiratory 16 22 Rate Blood Pressure 127/48 145/54 Blood Pressure 145/54 [Left] O2 Sat by Pulse 98 97 Oximetry - Labs CBC & Chem 7: 07/18/21 04:00 07/18/21 04:00 HEART Score - HEART Score Troponin: Troponin T 0.087 ng/mL (0.00-0.029) H D 07/14/21 12:53
--- NOTE | 2021-07-17 16:48 | Gastroenterology Consultation ---
History of Present Illness - Reason for Consult Consult date: 07/17/21 anemia Requesting physician: KRIS BIANCHI - History of Present Illness This is a 75 yo female with pmh of spinal stenosis admitted on 07/14/2021 for several days of LE edema and dyspnea and cough. Patient found to have pulmonary edema and depressed EF of 40% on TTE this admission. Undergoing IV diuresis. GI consulted for anemia evaluation. Patient noted to have Hgb of 6.2 on admission and received 2 units of PRBC. Hgb responded to 8. Reports having black stools for few days last week but no BM over the past few days. No abdominal pain or nausea/vomiting. No prior GI bleed or EGD/Colonoscopy. Reports having diagnosis of IBS. Patient feels better with breathing but still on NC of 5 L today. Reports having craving for ice recently. Medication list reviewed. Past History Past Medical History: other (Spinal stenosis) Past Surgical History: No surgical history Social history: no significant social history Family history: no significant family history Medications and Allergies Allergies Allergy/AdvReac Type Severity Reaction Status Date / Time No Known Allergies Allergy Verified 07/13/21 22:04 Active Meds: Active Medications Acetaminophen (Acetaminophen 325 Mg Tab) 650 mg PO Q4H PRN PRN Reason: Pain MILD(1-3)/Fever >100.5/[place] Clopidogrel Bisulfate (Clopidogrel 75 Mg Tab) 75 mg PO QDAY [facility] Last Admin: 07/17/21 09:52 Dose: 75 mg Documented by: Furosemide (Furosemide 40 Mg/4 Ml Inj) 40 mg IV BID@0600,1800 [facility] Last Admin: 07/17/21 05:55 Dose: 40 mg Documented by: Hydroxyzine HCl (Hydroxyzine Hcl 25 Mg Tab) 25 mg PO Q6H PRN PRN Reason: Itching Last Admin: 07/17/21 12:50 Dose: 25 mg Documented by: Ceftriaxone Sodium (Rocephin/Ns 2 Gm/100 Ml) 2 gm in 100 mls @ 200 mls/hr IV Q24H [facility]; Protocol Last Admin: 07/17/21 12:45 Dose: 200 mls/hr Documented by: Lisinopril (Lisinopril 5 Mg Tab) 5 mg PO QDAY [facility] Last Admin: 07/17/21 09:58 Dose: 5 mg Documented by: Magnesium Hydroxide (Magnesium Hydroxide (Mom) Oral Liqd Udc) 30 ml PO Q4H PRN PRN Reason: Constipation Metoprolol Tartrate (Metoprolol Tartrate 25 Mg Tab) 25 mg PO Q8H [facility] Last Admin: 07/17/21 12:50 Dose: 25 mg Documented by: Morphine Sulfate (Morphine 2 Mg/1 Ml Inj) 2 mg IV Q4H PRN PRN Reason: Pain, Moderate (4-6) Last Admin: 07/17/21 04:52 Dose: 2 mg Documented by: Morphine Sulfate (Morphine 4 Mg/1 Ml Inj) 4 mg IV Q4H PRN PRN Reason: Pain , Severe (7-10) Nitroglycerin (Nitroglycerin 0.4 Mg Patch 24hr) 0.4 mg TD QDAY@0600 [facility] Last Admin: 07/17/21 06:09 Dose: 0.4 mg Documented by: Ondansetron HCl (Ondansetron 4 Mg/2 Ml Inj) 4 mg IV Q8H PRN PRN Reason: Nausea And Vomiting Pantoprazole Sodium (Pantoprazole 40 Mg Inj) 40 mg IV BID [facility] Potassium Chloride (Potassium Chloride Er 20 Meq Tab) 20 meq PO QDAY [facility] Last Admin: 07/17/21 09:52 Dose: 20 meq Documented by: Sodium Chloride (Sodium Chloride 0.9% 10 Ml Flush Syringe) 10 ml IV BID [facility] Last Admin: 07/17/21 09:52 Dose: 10 ml Documented by: Sodium Chloride (Sodium Chloride 0.9% 10 Ml Flush Syringe) 10 ml IV PRN PRN PRN Reason: LINE FLUSH Review of Systems - Review of Systems All systems: negative Constitutional: no weight loss, no weight gain, no fever Cardiovascular: chest pain, edema Respiratory: cough, shortness of breath Gastrointestinal: melena, no abdominal pain, no nausea, no vomiting, no BRBPR Neurological: weakness Endocrine: no cold intolerance Hematologic/Lymphatic: no easy bruising Exam - Constitutional Vital Signs: Temp Pulse Resp BP Pulse Ox 99.0 F 74 22 145/54 97 07/17/21 12:07 07/17/21 12:50 07/17/21 12:07 07/17/21 12:50 07/17/21 12:07 General appearance: no acute distress - EENT Eyes: EOM intact ENT: hearing intact - Neck Neck: supple - Respiratory Respiratory effort: normal Respiratory: bilateral: diminished - Cardiovascular Rhythm: regular Heart Sounds: Present: S1 & S2 - Gastrointestinal General gastrointestinal: Present: soft, non-tender, non-distended - Integumentary Integumentary: Present: clear, warm. Absent: jaundice - Neurologic Neurological: alert and oriented x3 - Psychiatric Psychiatric: appropriate mood/affect - Labs CBC & Chem 7: 07/16/21 10:50 07/15/21 07:15 Assessment and Plan This is a 75 yo female with pmh of spinal stenosis admitted on 07/14/2021 for several days of LE edema and dyspnea and cough. GI consulted for anemia. # Anemia # Melena - Hgb at 6 on admission and responded to blood transfusion. - HD stable but on NC with 5 L. undergoing IV diuresis. - report of black stools for few days last week but no BM this admission. - rectal exam today with brown stool. Rec - recommend PPI IV bid - monitor H/H. - will tentatively plan for EGD tomorrow based on respiratory status. - currently on plavix. - will need cardiac risk stratification prior to sedation/endoscopy. - NPO MN.
[2021-07-17] MEDS: PANTOPRAZOLE 40 MG INJ IV SCH ×2 (19:49→23:11)
[2021-07-17] MEDS: ACETAMINOPHEN 325 MG TAB PO PRN (19:49)
[2021-07-18] MEDS: FUROSEMIDE 40 MG/4 ML INJ IV SCH ×2 (05:31→17:49)
[2021-07-18] MEDS: METOPROLOL TARTRATE 25 MG TAB PO SCH ×3 (05:32→21:00)
[2021-07-18] MEDS: NITROGLYCERIN 0.4 MG PATCH 24HR TD SCH (05:32)
[2021-07-18 05:44] LABS: Hematocrit 27.3 % (30.3-42.9); Hemoglobin 8.8 gm/dl (10.1-14.3); Mean Corpuscular HGB Conc 32 % (30-34); Mean Corpuscular Volume 73 fl (79-97); Platelet Count 246 K/mm3 (140-440); Red Blood Count 3.73 M/mm3 (3.65-5.03)
[2021-07-18 05:50] LABS: Red Cell Distribution Width 27.6 % (13.2-15.2)
[2021-07-18 05:54] LABS: Blood Urea Nitrogen 21 mg/dL (7-17); Calcium 9.1 mg/dL (8.4-10.2); Hemolysis Index 17
[2021-07-18 06:00] LABS: BUN/Creatinine Ratio 30
[2021-07-18] MEDS ORDERED: WATER FOR IRRIG STERILE 250 ML BOTTLE IR ONE (10:09)
[2021-07-18] MEDS ORDERED: SODIUM CHLORIDE 0.9% 1000 ML 1,000 ML ONE (10:09)
[2021-07-18] MEDS ORDERED: WATER FOR IRRIG STERILE 1,000 ML BOTTLE ONE (10:09)
[2021-07-18] MEDS: PANTOPRAZOLE 40 MG INJ IV SCH (10:18)
[2021-07-18] MEDS ORDERED: LIDOCAINE MPF (2%) 20 MG/1 ML VIAL 5 ML ONE (10:54)
[2021-07-18] MEDS ORDERED: propofoL 200 MG/20 ML VIAL IV ONE ×2 (10:54→11:43)
--- NOTE | 2021-07-18 11:06 | XRay Report ---
XR chest 1V ap INDICATION / CLINICAL INFORMATION: sob. COMPARISON: 07/13/2021 FINDINGS: SUPPORT DEVICES: None. HEART /PULMONARY VASCULATURE: Improved pulmonary vasculature congestion. LUNGS / PLEURA: Improved lateral interstitial opacities. Trace bibasilar pleural effusions persist. N o pneumothorax. ADDITIONAL FINDINGS: No significant additional findings. IMPRESSION: Improving CHF/volume overload. Signer Name: Justin Cueto MD Signed: 07/18/2021 11:01 AM Workstation Name: [id number]
--- NOTE | 2021-07-18 11:24 | Anesthesia Day of Surgery ---
Anesthesia Day of Surgery - Day of Surgery Patient Examined: Yes Patient H&P Reviewed: Yes Patient is NPO: Yes
--- NOTE | 2021-07-18 11:28 | Anesthesia Consultation ---
Anesthesia Consult and Med Hx Date of service: 07/18/21 - Airway Anesthetic Teeth Evaluation: Edentulous ROM Head & Neck: Inadequate Mental/Hyoid Distance: Adequate Mallampati Class: Class III Intubation Access Assessment: Possibly Difficult - Pulmonary Exam CTA: Yes - Cardiac Exam Cardiac Exam: RRR - Pre-Operative Health Status ASA Pre-Surgery Classification: ASA3, Emergency Proposed Anesthetic Plan: MAC - Pre-Anesthesia Comment Pre-Anesthesia Comments: H/o dyspnea, on O2 from 5 to currently 2L/min; evaluated by cardiology. EF 40-45%. - Pulmonary Hx Smoking: No Hx Respiratory Symptoms: Yes Home Oxygen Therapy: No - Cardiovascular System Hx Hypertension: No Hx Heart Attack/AMI: No Hx Cardia Arrhythmia: No Hx Valvular Heart Disease: No Hx Heart Murmur: No - Central Nervous System Hx Neuromuscular Disorder: No Hx Back Pain: Yes - Gastrointestinal Hx Gastroesophageal Reflux Disease: No - Endocrine Hx Renal Disease: No Hx Cirrhosis: No Hx Liver Disease: No Hx Thyroid Disease: No - Hematic Hx Anemia: Yes - Other Systems Hx Alcohol Use: No Hx Obesity: Yes - Additional Comments Anesthesia Medical History Comments: No GAC, No FHAC
[2021-07-18 11:46] LABS: Anisocytosis 3+; Band Neutrophils # (Manual) 0.1 K/mm3; Hypochromasia 1+; Total Cells Counted 100
[2021-07-18 11:48] LABS: Ovalocytes 1+; Platelet Estimate Consistent w Auto
--- NOTE | 2021-07-18 12:12 | Operative Report ---
Operative Report Operative Report: Date: 07/18/2021 SURGEON: Ishmael Shields MD (Jenny) EGD REPORT PREOPERATIVE DIAGNOSIS: melena, anemia POSTOPERATIVE DIAGNOSIS: moderate hiatal hernia, esophageal ring, esophagitis, gastritis, gastric erosions. ESTIMATED BLOOD LOSS:none DESCRIPTION OF PROCEDURE: A high-resolution EGD scope was passed through the oropharynx, esophagus, stomach, and second portion of duodenum. The scope was carefully withdrawn. Retroflexion was performed in the stomach. At the end of the procedure, the scope was cleaned using normal technique. Vital signs monitored continuously throughout. SEDATION: Provided by Anesthesiology Services. COMPLICATIONS: None. FINDINGS: 1. Multiple small nonbleeding erosions in the antrum along with diffuse erythematous mucosa suggestive of gastritis. Biopsies not obtained given patient on plavix. 2. A moderate size hiatal hernia. 3. A nonobstructing distal esophageal ring with mild esophagitis. 4. Examined part of duodenum appeared normal. 5. No blood throughout the exam. RECOMMENDATIONS: 1. Resume clear liquid diet. 2. Monitor H/H serially. 3. Continue with PPI. Can switch to PO BID. 4. Recommend colonoscopy for anemia work up as outpatient. 5. Discussed with IMS and Cardiology. 6. Will follow.
--- NOTE | 2021-07-18 12:13 | Progress Note ---
Assessment and Plan - Patient Problems (1) Shortness of breath Current Visit: Yes Status: Acute Plan to address problem: Patient presented with shortness of breath, evidence of interstitial edema on chest x-ray. Severe anemia with hematocrit of 20 on presentation may indicate demand ischemia or high output heart failure. Patient's echocardiogram showed a mild to moderate severity cardiomyopathy with regional motion abnormalities that may also suggest underlying coronary artery disease or other etiologies of nonischemic LV dysfunction such as Tak[place]ubo. We will proceed with Lexiscan thallium myocardial perfusion imaging in the morning. Subjective Date of service: 07/18/21 Interval history: Patient underwent upper GI endoscopy today, results were negative. She is planned for a staged colonoscopy at a later date. The hematocrit is now stable at greater than 27. After consultation with the language teacher, we will proceed with cardiac ischemic imaging in the morning, with a Lexiscan thallium. Objective Vital Signs Temp Pulse Resp BP BP Pulse Ox 07/18/21 11:10 97.6 F 80 14 125/38 95 07/18/21 08:45 97 07/18/21 08:00 95 07/18/21 04:42 98.4 F 76 18 151/49 97 07/17/21 22:20 98 07/17/21 22:02 98.5 F 81 18 122/45 98 07/17/21 18:29 98.6 F 83 18 113/43 98 07/17/21 17:00 95 07/17/21 12:50 74 145/54 - Physical Examination General: No Apparent Distress HEENT: Positive: PERRL Neck: Positive: neck supple Cardiac: Positive: Reg Rate and Rhythm Lungs: Positive: clear to auscultation Neuro: Positive: Grossly Intact Abdomen: Positive: Soft Skin: Positive: Clear Extremities: Absent: edema - Labs and Meds CBC 07/18/21 Range/Units 04:00 WBC 7.1 (4.5-11.0) K/mm3 RBC 3.73 (3.65-5.03) M/mm3 Hgb 8.8 L (10.1-14.3) gm/dl Hct 27.3 L (30.3-42.9) % Plt Count 246 (140-440) K/mm3 Comprehensive Metabolic Panel 07/18/21 Range/Units 04:00 Sodium 141 (137-145) mmol/L Potassium 3.3 L (3.6-5.0) mmol/L Chloride 100.0 (98-107) mmol/L Carbon Dioxide 31 H (22-30) mmol/L BUN 21 H (7-17) mg/dL Creatinine 0.7 (0.6-1.2) mg/dL Glucose 104 H (65-100) mg/dL Calcium 9.1 (8.4-10.2) mg/dL
[2021-07-18] MEDS: CLOPIDOGREL 75 MG TAB PO SCH (13:51)
[2021-07-18] MEDS: POTASSIUM CHLORIDE ER 20 MEQ TAB PO SCH (13:51)
[2021-07-18] MEDS: cefTRIAXone/NS 2 GM/100 ML 2 GM/100 ML BAG IV SCH (13:52)
[2021-07-18] MEDS: LISINOPRIL 5 MG TAB PO SCH (13:52)
--- NOTE | 2021-07-18 15:23 | Progress Note ---
Assessment and Plan --Acute on chronic systolic CHF exacerbation Patient placed on diuretics. Will monitor inputs and outputs and also monitor daily weight. 2D echo showed EF 40 to 45% Consult placed to cardiology for evaluation. --Acute hypoxic respiratory failure, likely due to CHF exacerbation Negative for COVID-19, continue IV Lasix for now --Covid PUI, patient is unvaccinated for Covid, Covid test is negative -- NSTEMI (non-ST elevated myocardial infarction) type II Possibly secondary to demand ischemia. Patient has denied any chest pain. We will monitor EKG and troponin levels. stress test tomorrow -- Anemia likely acute on chronic likely from PUD, on PPI transfused with 2 units packed red blood cells. We will monitor CBC. Ordered stool for occult blood GI on board, s/p EGD --UTI with gram-negative rods, present on admission initiated on empiric antibiotics -- DVT prophylaxis, SCD for severe anemia --Full CODE STATUS Daily clinical course: 07/14/21: Patient currently on 5 L nasal cannula O2. Patient appears anxious with bilateral diffuse crackles and rhonchi The patient is a 75-year-old woman who presents to the hospital with several days of shortness of breath. On presentation, ECG was sinus rhythm with no acute changes. Chest x-ray showed bilateral interstitial infiltrates, suggestive of acute pulmonary edema. Continue IV Lasix, cardiology consulted Waiting on pending 2D echocardiogram status post 1 unit of packed RBC transfusion. Patient is unvaccinated for Covid, will also rule out for Covid pneumonia Continue current management and plan 07/15/21: Patient hemoglobin still remains low, transfuse another unit of packed RBC, order stool for occult blood, hold heparin. pending Covid test. 2D echo showed EF 40 to 45%. Wean off O2 as tolerated, remains on 4 to 5 L nasal cannul a O2. 07/16/21: Negative for Covid, continue diuresis, H&H stable. Wait for stool for occult blood, will also consult GI. Wean off O2 as tolerated 07/17/21: Urine culture suggestive of UTI with Klebsiella, initiated on empiric antibiotics, consulted GI for anemia, patient may need possible EGD. Wait for GI recommendation. Continue IV Lasix, follow CBC BMP 07/18/21: Pt on 2L N/c today, s/p EGD showed Multiple small nonbleeding erosions in the antrum along with diffuse erythematous mucosa suggestive of gastritis. Biopsies not obtained given patient on plavix. cont clear liquid diet, plan for colonoscopy as outpt, stress test tomorrow. follow clinically Subjective Date of service: 07/18/21 Interval history: Patient seen and examined. Medical records and medication list reviewed. No acute event overnight noted by the RN. Patient complains of difficulty breathing on exertion. Patient is tolerating diet. Denies any active bleeding Discussed plan of care at bedside with patient. Objective - Exam Narrative Exam: Limited physical exam due to COVID-19 pandemic to minimize transmission of the disease and to preserve PPE. Vital reviewed and stable. GENERAL: well-developed obese elderly man white female lying on bed appeared to be in no discomfort. HEENT: Normocephalic. Atraumatic. NECK: Supple. CHEST/LUNGS: breathing with supplemental O2 HEART/CARDIOVASCULAR: Heart rate stable on telemetry ABDOMEN: Visibly not distended SKIN: There is no rash NEURO: No focal motor deficit. Follows command. MUSCULOSKELETAL: No joint effusion EXTRIMITY: No swelling, no cyanosis or clubbing. PSYCH: Cooperative. - Constitutional Vitals: Vital Signs - 12hr 07/18/21 07/18/21 07/18/21 04:42 08:00 08:45 Temperature 98.4 F Pulse Rate 76 Respiratory 18 Rate Blood Pressure 151/49 O2 Sat by Pulse 97 95 97 Oximetry 07/18/21 07/18/21 07/18/21 11:10 11:59 14:09 Temperature 97.6 F 97.6 F Pulse Rate 80 81 84 Respiratory 14 19 Rate Blood Pressure 125/38 98/41 132/60 O2 Sat by Pulse 95 3 L Oximetry - Labs CBC & Chem 7: 07/18/21 04:00 07/18/21 04:00 Labs: Abnormal lab results 07/18/21 07/18/21 Range/Units 04:00 04:00 Hgb 8.8 L (10.1-14.3) gm/dl Hct 27.3 L (30.3-42.9) % MCV 73 L (79-97) fl MCH 24 L (28-32) pg RDW 27.6 H (13.2-15.2) % Potassium 3.3 L (3.6-5.0) mmol/L Carbon Dioxide 31 H (22-30) mmol/L BUN 21 H (7-17) mg/dL Glucose 104 H (65-100) mg/dL HEART Score - HEART Score Troponin: Troponin T 0.087 ng/mL (0.00-0.029) H D 07/14/21 12:53
--- NOTE | 2021-07-18 16:40 | Post Anesthesia Evaluation ---
- Post Anesthesia Evaluation Patient Participated: Yes Airway Patent: Yes Stable Respiratory Function: Yes Nausea/Vomiting: No Temp > 96.8F: Yes Pain Manageable: Yes Adequeate Hydration: Yes Anesthesia Complications: No Block Receding Appropriately: Not Applicable Patient on Ventilator: No
[2021-07-18] MEDS: PANTOPRAZOLE 40 MG TAB PO SCH (17:49)
[2021-07-19] MEDS: FUROSEMIDE 40 MG/4 ML INJ IV SCH (06:00)
[2021-07-19] MEDS: PANTOPRAZOLE 40 MG TAB PO SCH (07:11)
[2021-07-19 07:24] LABS: Blood Urea Nitrogen 22 mg/dL (7-17); Calcium 9.4 mg/dL (8.4-10.2); Hemolysis Index 21
[2021-07-19 07:25] LABS: BUN/Creatinine Ratio 37
[2021-07-19] MEDS: NITROGLYCERIN 0.4 MG PATCH 24HR TD SCH (07:36)
[2021-07-19] MEDS: METOPROLOL TARTRATE 25 MG TAB PO SCH (07:37)
[2021-07-19] MEDS ORDERED: REGADENOSON 0.4 MG/5 ML INJ IV ONE (08:20)
[2021-07-19] MEDS ORDERED: POTASSIUM CHLORIDE ER 20 MEQ TAB PO NR (09:00)
[2021-07-19] MEDS: CLOPIDOGREL 75 MG TAB PO SCH (11:13)
[2021-07-19] MEDS: LISINOPRIL 5 MG TAB PO SCH (11:14)
[2021-07-19] MEDS: ACETAMINOPHEN 325 MG TAB PO PRN (11:20)
--- NOTE | 2021-07-19 11:24 | Nuclear Medicine Report ---
APPROVED REPORT Exam: Nuclear Stress Test Indication: Chest pain, CHF Ht: 5 ft 1 in Wt: 219 lbs BSA: 1.96 m2 BMI: 41.37 Rhythm: NSR Stress Test Details Stress Test: Pharmacologic stress testing performed using 0.4 mg of regadenoson per 5 mL given IV over 10 seconds. Reason for pharmacologic stress test: physical limitation. HR Resting HR: 87 bpm Max HR Achieved: 103 bpm Max Heart Rate (APMHR): 145 bpm Target HR (85% APMHR): 123 bpm % of APMHR: 71 Recovery HR: 99 bpm HR response to stress: Normal HR response to stress BP Resting BP: 112/46 mmHg Max BP: 148/64 mmHg Recovery BP: 108/50 mmHg BP response to stress: Normal blood pressure response to stress. ECG Resting ECG: Sinus Rhythm Stress ECG: Sinus Tachycardia ST Change: None Arrhythmia: None Recovery ECG: Sinus Rhythm Recovery ST Change: None Recovery Arrhythmia: None Clinical Reason for Termination: Completed protocol Stress Symptoms: Abdominal discomfort Stress ECG Conclusion No chest pain, no ST changes of ischemia with pharmacologic stress testing, myocardial perfusion images are pending for final test interpretation. NM EXAM: Myocardial Perfusion REST/STRESS Imaging Protocol: Rest Tc-99m/Stress Tc-99m 1 day Resting Data Rest SPECT myocardial perfusion imaging was performed in supine position 45 minutes following the intravenous injection of 10 mCi of Tc-99m Myoview. Time of rest injection: 0700 Pharmacologic Stress Pharmacologic stress test was performed by injecting Regadenoson 0.4 mg IV push followed by the intravenous injection of 28 mCi of Tc-99m Myoview. Time of stress injection: 1010 Gated Stress SPECT was performed 30 minutes after stress injection. The images were gated to evaluate regional wall motion and calculate left ventricular ejection fraction. Study Quality Study: excellent Lung Uptake: Normal Study Data TID = 0.96. Perfusion Wall Motion Left ventricular systolic function is mildly impaired, with ejection fraction 45%. Nuclear Conclusion ECG Findings: negative for ischemia Clinical Findings: negative for ischemia Nuclear Findings: negative for ischemia Left Ventricular Function: abnormal Risk Study: low Myocardial perfusion study demonstrates a small lateral apical defect, worse on the resting perfusion study. Suggest likely breast attenuation artifact. No ischemic defects identified. There is very mild left ventricular systolic dysfunction with ejection fraction 45%. Study findings suggest likely a mild nonischemic cardiomyopathy. Clinical correlation is recommended. Conclusion No chest pain, no ST changes of ischemia with pharmacologic stress testing, myocardial perfusion images are pending for final test interpretation.
--- NOTE | 2021-07-19 11:26 | Event Note ---
Date: 07/19/21 Patient is Lexiscan thallium stress test completed today shows a small lateral apical defect suggestive of breast attenuation artifact. No ischemic defects identified. Left ventricular systolic ejection fraction is mildly impaired at 45%. Recommend medical therapy and risk factor modification. Stable for cardiac discharge on medical therapy, and stable for eventual lower GI endoscopy which is planned for the outpatient setting. We will recommend continue Plavix 75 mg daily for antiplatelet therapy in place of aspirin until GI bleeding evaluation is completed. Plavix can be held for 4 to 5 days prior to anticipated colonoscopy.
[2021-07-19 11:46] VITALS: BP 151/55
[2021-07-19] MEDS: POTASSIUM CHLORIDE ER 20 MEQ TAB PO SCH (11:46)
[2021-07-19] MEDS: cefTRIAXone/NS 2 GM/100 ML 2 GM/100 ML BAG IV SCH (11:54)
--- NOTE | 2021-07-19 12:18 | Discharge Summary ---
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 Hospitalization Reason for admission: Severe anemia/worsening shortness of breath/worsening leg edema Condition: Stable Pertinent studies: Chest x-ray: Mild CHF Echocardiogram: EF 40 to 45% Mild concentric LVH Right ventricular size and systolic function normal Procedures: Nuclear stress test; negative for ischemia EGD: multiple small nonbleeding erosions in the antrum along with diffuse erythematous mucosa suggestive of gastritis biopsies obtained ,moderate-sized hiatal hernia, nonobstructing distal esophageal ring with mild esophagitis , duodenum no bleeding throughout the examination Hospital course: 75-year-old female patient with significant past medical history of spinal stenosis was admitted through emergency room with worsening shortness of breath and worsening leg edema of few days duration patient was initially evaluated and findings consistent with congestive heart failure patient was managed appropriately subsequently evaluated by compressor operator had extensive cardiac work- up with echocardiogram which revealed mild decrease in systolic function with ejection fraction of 45% chest x-ray showed mild CHF patient also subsequently underwent nuclear stress test which was negative for reversible ischemia patient was evaluated by GI for anemia with hemoglobin of 6.2 upon admission patient received 2 units of PRBC with improvement of hemoglobin from 6.2-8.8 underwent EGD which showed gastritis and some erosions biopsies were done GI recommended Protonix and follow-up post discharge for further evaluation and management patient symptoms slowly but gradually improved today patient is comfortable no new complaints no episodes of bleeding no nausea vomiting or abdominal pain vital signs stable physical examination is unremarkable at discharge cleared by consultants for discharge and follow-up as outpatient per schedule. Patient also had sepsis with Klebsiella pneumonia UTI, patient received 6 days of Rocephin and symptoms completely resolved Patient strongly advised diet modification, exercise as tolerated, and weight reduction when medically stable patient is hemodynamically and clinically stable at discharge Discharge diagnosis: --Acute on chronic systolic CHF exacerbation Patient placed on diuretics. Will monitor inputs and outputs and also monitor daily weight. 2D echo showed EF 40 to 45% Consult placed to cardiology for evaluation. --Acute hypoxic respiratory failure, likely due to CHF exacerbation Negative for COVID-19, continue IV Lasix for now --Covid PUI, patient is unvaccinated for Covid, Covid test is negative -- NSTEMI (non-ST elevated myocardial infarction) type II Possibly secondary to demand ischemia. Patient has denied any chest pain. We will monitor EKG and troponin levels. stress test negative for reversible ischemia -- Anemia likely acute on chronic likely from PUD, on PPI transfused with 2 units packed red blood cells. We will monitor CBC. Ordered stool for occult blood GI evaluated the patient, s/p EGD, gastric erosions, esophagitis, hiatal hernia Advised Protonix --Gastric erosions/esophagitis/hiatal hernia: Continue Protonix, follow-up GI per schedule --Sepsis secondary to Klebsiella pneumonia UTI Patient received 6 days of Rocephin Symptoms resolved -- DVT prophylaxis, SCD for severe anemia --Full CODE STATUS Stable at discharge Cleared by all the consultants for discharge and follow-up per schedule Disposition: HOME HEALTH CARE SERVICE Final Discharge Diagnosis (Prints w/discharge instructions): Acute on chronic systolic congestive heart failure. Acute hypoxic respiratory failure. COVID-19 negative. Non-ST elevation MD type II. Anemia acute on chronic. s/p 2 unit PRBC transfusion. Sepsis due to urinary tract infection. Klebsiella pneumonia UTI. Morbid obesity BMI 40.9. Full CODE STATUS Time spent for discharge: 35 min Core Measure Documentation - Palliative Care Palliative Care/ Comfort Measures: Not Applicable - Core Measures Any of the following diagnoses?: none Exam - Constitutional Vitals: Temp Pulse Resp BP Pulse Ox 98.2 F 98 H 19 151/55 98 07/19/21 11:26 07/19/21 11:26 07/19/21 11:26 07/19/21 11:26 07/19/21 11:26 General appearance: Present: no acute distress, well-nourished - EENT Eyes: Present: PERRL, EOM intact - Neck Neck: Present: supple, normal ROM - Respiratory Respiratory effort: normal Respiratory: bilateral: diminished, negative: rales, rhonchi, wheezing - Cardiovascular Rhythm: regular Heart Sounds: Present: S1 & S2 - Extremities Extremities: no ischemia, No edema - Abdominal General gastrointestinal: Present: soft, non-tender, non-distended, normal bowel sounds - Integumentary Integumentary: Present: clear, warm - Musculoskeletal Musculoskeletal: strength equal bilaterally, generalized weakness - Psychiatric Psychiatric: appropriate mood/affect, cooperative - Neurologic Neurologic: CNII-XII intact, moves all extremities Plan Activity: advance as tolerated, fall precautions Diet: other (Cardiac diet) Additional Instructions: If you have worsening symptoms contact MD or go to the nearest emergency room as needed. Follow with primary care physician in 3 to 5 days, follow compressor operator in 1 to 2 weeks, GI in 1 to 2 weeks. Advised weight reduction when you are medically stable, diet modification exercise as tolerated and weight reduction stable,. Patient will have home O2 evaluation, and CM will assist with home oxygen if needed Follow up with: PRIMARY CAREMD [Primary Care Provider] - 7 Days GABINO OBREGON MD [Staff Physician] - 7 Days MEG ROSADO MD [Staff Physician] - 14 Days Prescriptions: Potassium Chloride [K-Dur] 20 meq PO QDAY #10 tablet Furosemide [Lasix TAB] 40 mg PO QDAY #30 tablet Metoprolol [Lopressor TAB] 25 mg PO Q8H #90 tablet Clopidogrel [Plavix] 75 mg PO QDAY #30 tablet Pantoprazole [Protonix TAB] 40 mg PO BIDAC #60 tablet lisinopriL [Zestril TAB] 5 mg PO QDAY #30 tablet
--- NOTE | 2021-07-19 16:06 | Gastroenterology Progress Note ---
Assessment and Plan This is a 75 yo female with pmh of spinal stenosis admitted on 07/14/2021 for several days of LE edema and dyspnea and cough. GI consulted for anemia. # Anemia # Melena - Hgb at 6 on admission and responded to blood transfusion. - s/p EGD showing multiple nonbleeding gastric erosions and esophageal ring. No biopsies due to plavix. Rec - cont with PPI PO bid - follow up in outpatient GI clinic for colonoscopy once plavix held for 5 days. - avoid NSAIDs. Subjective Date of service: 07/19/21 Interval history: Patient without any bleeding overnight. Had stress test this morning. No abdominal pain. Objective - Constitutional Vitals: Temp Pulse Resp BP Pulse Ox 98.2 F 98 H 19 151/55 98 07/19/21 11:26 07/19/21 11:26 07/19/21 11:26 07/19/21 11:26 07/19/21 11:26 General appearance: no acute distress - EENT Eyes: EOM intact - Neck Neck: supple - Respiratory Respiratory effort: normal - Cardiovascular Rhythm: regular Heart Sounds: Present: S1 & S2 - Gastrointestinal General gastrointestinal: Present: soft, non-tender, non-distended - Neurologic Neurological: alert and oriented x3 - Labs CBC & Chem 7: 07/18/21 04:00 07/19/21 05:10 Labs: Laboratory Results - last 24 hr 07/19/21 05:10 Sodium 140 Potassium 3.1 L Chloride 97.7 L Carbon Dioxide 28 Anion Gap 17 BUN 22 H Creatinine 0.6 Estimated GFR > 60 BUN/Creatinine Ratio 37 Glucose 101 H Calcium 9.4
--- NOTE | 2021-07-20 14:34 | Electrocardiograph Report ---
[facility] Test Date: 2021-07-14 Test Time: 00:46:55 Pat Name: VERENICE LICEA Department: Room: A387 Gender: F [employer]: DARSHAN : 1945 Requested By: RAMIRO PATEL III Order Number: [id number] Reading MD: Scottie Inman Measurements Intervals [place] Rate: 104 P: 60 DE: 138 QRS: 29 QRSD: 76 T: 98 QT: 312 QTc: 410 Interpretive Statements Sinus tachycardia Very poor quality ECG No previous ECG available for comparison Electronically Signed On 07-20-2021 14:33:39 EDT by Scottie Inman
== END 2021-07-19 15:55 | disposition home health service (06) | DRG 280 ==
LOC: ED 20:04 → IMCU 07-14 00:45 → 4A 07-14 03:03 → OBSVTOIN 07-14 08:30 → 3A 07-14 16:19
PROVIDERS: ADMIT Internal Medicine Geriatric Medicine; ATTEND Internal Medicine
PROC: 30233N1 Transfusion of Nonautologous Red Blood Cells into Peripheral Vein, Percutaneous Approach (ICD-10-PCS; principal; 2021-07-14)
PROC: 0DJ08ZZ Inspection of Upper Intestinal Tract, Via Natural or Artificial Opening Endoscopic (ICD-10-PCS; 2021-07-18)
DX: I50.23 Acute on chronic systolic (congestive) heart failure (principal); I21.A1 Myocardial infarction type 2; J96.01 Acute respiratory failure with hypoxia; I42.9 Cardiomyopathy, unspecified; N39.0 Urinary tract infection, site not specified; K92.1 Melena; J81.0 Acute pulmonary edema; D64.9 Anemia, unspecified; Z20.822 Contact with and (suspected) exposure to COVID-19; K44.9 Diaphragmatic hernia without obstruction or gangrene
CPT/HCPCS: 36415; 71045; 78452; 80048; 80053; 80061; 81001; 82140; 82550; 82553; 82962; 83880; 84484; 85007; 85014; 85018; 85025; 85049; 85520; 85610; 85730; 86850; 86900; 86901; 86920; 87076; 87086; 87186; 93005; 93017; 93306; 94760; G0378; A9502; C9113; J0696; J1200; J1644; J1940; J2060; J2270; J2405; J2704; J2785; J7030; J7040; P9016; U0003